=== PATIENT | female | born 1950 | race African-American/Black ===

== ENCOUNTER 2019-01-28 12:27 | Inpatient (IN) ==
--- NOTE | 2019-01-28 13:03 | EKG Report ---
Test Performed on : 01/28/2019 1:00:07 PM Test Reason : near syncope Blood Pressure : / mmHG Vent. Rate : 065 BPM Atrial Rate : 065 BPM P-R Int : 160 ms QRS Dur : 088 ms QT Int : 400 ms P-R-T Axes : 041 -24 -16 degrees QTc Int : 416 ms Normal sinus rhythm. Moderate voltage criteria for LVH, may be normal variant Borderline ECG When compared with ECG of 03-APR-2016 06:47, No significant change was found Unconfirmed Result
--- NOTE | 2019-01-28 14:05 | Diag Imaging Result Doc PS360 ---
EXAM : CT HEAD/C-SPINE W/O CONTRAST HISTORY: syncope, fall/trauma TECHNIQUE: 1. CT head without contrast 2. CT cervical spine without contrast COMPARISON: 04/05/2018 FINDINGS: Head: No parenchymal hemorrhage. No epidural or subdural hematoma. No subarachnoid hemorrhage. There are chronic microvascular ischemic changes. No mass identified on this noncontrasted exam. No hydrocephalus. No skull fracture. Cervical spine: There is mild reversal of normal curvature with mild scoliosis. Moderate to prominent degenerative changes in the lower cervical spine. No fracture. IMPRESSION: Head: No hemorrhage. No injury. Cervical spine: No acute fracture. This exam was performed using automated exposure control, adjustment of mA or kV according to patient size, and/or use of iterative reconstruction technique. Electronically signed by Carlos Marquez 01/28/2019 2:03 PM
--- NOTE | 2019-01-28 14:10 | Diag Imaging Result Doc PS360 ---
EXAM: KNEE 3 VIEWS LEFT HISTORY: fall, injury TECHNIQUE: Left knee, three views COMPARISON: 04/05/2018 FINDINGS: No fracture. No dislocation. Prominent joint space narrowing medially. There are bone spur femoral condyles and tibial plateau. Prominent patellar bone spurs with patellofemoral joint space narrowing. IMPRESSION: Severe arthritis. No acute fracture. Electronically signed by Carlos Marquez 01/28/2019 2:08 PM
--- NOTE | 2019-01-28 14:11 | Diag Imaging Result Doc PS360 ---
EXAM: CHEST-1 VIEW HISTORY: chest pain, fall TECHNIQUE: Chest single view COMPARISON: 04/15/2013 FINDINGS: The lungs are well expanded. No contusion. No pneumothorax. The heart is mildly enlarged. The vessels are not distended. There are no infiltrates. No effusion identified. Right granuloma. IMPRESSION: No injury Electronically signed by Carlos Marquez 01/28/2019 2:09 PM
[2019-01-28 14:40] LABS: BASO# 0.02 X1000 (0.0-0.2); BASO% 0.3 % (0.0-0.8); HEMATOCRIT 33.3 % (37.0-47.0); HEMOGLOBIN 10.8 g/dL (12.0-16.0); IMM GRAN# 0.01 X1000 (0.0-0.04); IMM GRAN% 0.2 % (0.0-0.5); LYMPH# 1.37 X1000 (1.2-3.4); LYMPH% 23.1 % (20.5-51.1); MCH 27.5 PG (27-31); MCHC 32.4 g/dL (33-37); MCV 84.7 FL (81-99); MONO# 0.49 X1000 (0.11-0.59); MONO% 8.3 % (1.7-9.3); MPV 11.4 FL (7.4-10.4); NEUT# 4.04 X1000 (1.4-6.5); NEUT% 68.1 % (42.2-75.2); PLT 195 X1000 (130-400); RBC 3.93 XMIL (4.2-5.4); RDW 14.9 % (11.5-14.5); WBC 5.93 X1000 (4.8-10.8)
[2019-01-28 14:41] LABS: AGAP 10; ALBUMIN 3.5 g/dL (3.5-5.0); ALKALINE PHOSPHATASE 66 U/L (32-104); BUN 14 mg/dL (8-22); CALCIUM 8.7 mg/dL (8.8-10.2); CHLORIDE 107 mmol/L (98-107); COSMO 279; CREATININE 0.6 mg/dL (0.5-0.9); ESTIMATED GFR > 60; GLUCOSE 86 mg/dL (70-104); GOT 54 U/L (10-30); GPT 11 U/L (10-36); POTASSIUM 4.2 mmol/L (3.5-5.1); SODIUM 140 mmol/L (136-145); TCO2 24 mmol/L (25-35); TOTAL PROTEIN 6.6 g/dL (6.3-8.3)
[2019-01-28 15:11] LABS: URINE SOURCE CLEAN CATCH
[2019-01-28 15:32] LABS: BILIRUBIN URINE NEGATIVE (NEGATIVE); BLOOD URINE NEGATIVE (NEGATIVE); CLARITY CLEAR (CLEAR); COLOR YELLOW; GLUCOSE URINE NEGATIVE (NEGATIVE); KETONE URINE TRACE mg/dL (NEGATIVE); LEUKOCYTES URINE NEGATIVE (NEGATIVE); NITRITE URINE NEGATIVE (NEGATIVE); PROTEIN URINE TRACE mg/dL (NEGATIVE); UROBILINOGEN URINE 4 mg/dL
[2019-01-28 15:46] LABS: URINE BACTERIA 3+ /HFP; URINE EPITHELIAL CELLS >10 /HPF (<10); URINE RBC <10 /HPF (<10); URINE WBC <10 /HPF (<10); URINE YEAST NONE SEEN /HPF
[2019-01-28 15:47] LABS: URINE CAST NONE SEEN /LPF; URINE CRYSTAL NONE SEEN /HPF
--- NOTE | 2019-01-28 18:03 | PROVIDER DOCUMENTATION ---
This chart was entered by Katy Recinos Scribe, acting as scribe for Rene Guerra MD. HPI-General Adult - General Chief Complaint: Near Syncope Stated Complaint: PASSED OUT / NAUSEA / FALL Time Seen by Provider: 01/28/19 13:00 Source: patient, family (daughter) Allergies/Adverse Reactions: Patient Allergies Allergy/AdvReac Type Severity Reaction Status Date / Time Penicillins Allergy HIVES Verified 04/05/18 20:32 adhesive tape AdvReac ITCHING Verified 04/05/18 20:32 Home Medications: Home Medication List Medication Instructions Recorded Confirmed Last Taken Type Amlodipine Besylate [Norvasc] 10 mg PO DAILY 03/29/16 01/28/19 01/28/19 History Levothyroxine Sodium [Synthroid] 200 mcg PO DAILY 03/29/16 01/28/19 01/28/19 History Aspirin 81 mg PO DAILY 04/05/18 01/28/19 01/28/19 History Hydrocodone/Acetaminophen [[place] 1 ea PO Q4-6H PRN PRN #12 tab 04/05/18 Unknown Rx 5-325 Tablet] Lisinopril/Hydrochlorothiazide 1 ea PO DAILY #30 tab 04/05/18 01/28/19 01/28/19 Rx [Lisinopril-Hctz 20-12.5 mg Tab] - History of Present Illness -Gen Adult Nature of Presenting Problems: 68 yobf presents to the ed with c/o syncope and fall. pt has left knee pain and rt shoulder pain. pt sts was going [employer] "when God spoke to me and touched me then I fell" pt sts has hx of syncope. prior to syncope pt had nausea and dizziness and post fall in she closes her eyes dizziness returns. pt on exam is nontoxic in appearance Location of Pain/Injury: reports: upper extremity (rt shoulder), lower extremity (l knee) Quality of Pain: reports: aching Severity: reports: moderate Onset/Duration: reports: just prior to arrival Timing: reports: still present, improving Context/Activities at Onset: reports: light activity Modifying Factors: improves with: rest. worse with: movement Associated Symptoms: reports: dizziness, joint pain (knee and shoulder), nausea, syncope. denies: back/neck pain, chest pain, cough, fatigue, fever/chills, shortness of breath, vomiting Similar Symptoms Previously?: Yes (hx of syncope) Recently seen or treated by another doctor?: No Review of Systems - Adult - REVIEW OF SYSTEMS - ADULT Constitutional: denies: chills, fever Eyes: reports: no symptoms reported Ears, Nose, Mouth & Throat: reports: no symptoms reported Cardiovascular: denies: chest pain, palpitations Respiratory: denies: shortness of breath, wheezing Gastrointestinal: reports: nausea. denies: diarrhea, vomiting Genitourinary: reports: no symptoms reported Musculoskeletal: reports: see HPI, joint pain, muscle aches. denies: back pain, neck pain Integumentary: reports: no symptoms reported Neurological: reports: see HPI, dizziness/vertigo, syncope. denies: ataxia, headache/migraines, seizure, slurred speech, tremors Psychiatric: reports: no symptoms reported Endocrine: reports: no symptoms reported Hematologic/Lymphatic: reports: no symptoms reported Allergic/Immunologic: reports: no symptoms reported All Other Systems: Reviewed and Negative Past History - Adult - PAST MEDICAL HISTORY-ADULT Review of Records: reports: Nursing Assessment Review, Medications Reviewed Major Childhood Illnesses: reports: denies history Cardiovascular: reports: HTN Respiratory: reports: asthma Gastrointestinal: reports: denies history Obstetrical/Gynecological: reports: denies history Genitourinary: reports: denies history Musculoskeletal: reports: denies history Hand Dominance: Right Handed Neurological: reports: Multiple Sclerosis, TIA Psychiatric: reports: denies history Endocrine/Immune: reports: thyroid disorder Other Conditions: reports: denies history - PRIOR SURGERIES/PROCEDURES Surgical/Procedure History: reports: hysterectomy, joint replacement, other (sx on jugular due to growth) - IMMUNIZATION STATUS Childhood Immunizations: See Nurse Assessment Flu Vaccine: See Nurse Assessment - FAMILY HISTORY Family History: reviewed, not pertinent - SOCIAL HISTORY Smoking: quit greater than 1 year Substance Use: denies Alcohol Use Frequency: never Living Situation: family Physical Exam-General - PHYSICAL EXAM-ADULT Initial Vital Signs Reviewed: Yes - CONSTITUTIONAL General Appearance: appears well, alert, obese - EYES Eyes: PERRL/EOMI, pink conjunctivae - HEAD, EARS, NOSE, MOUTH & THROAT HENMT: normocephalic/atraumatic, moist mucous membranes, normal ENT inspection - NECK Neck: full range of motion, supple, normal inspection - RESPIRATORY Respiratory: chest non-tender, lungs clear, normal breath sounds - CARDIOVASCULAR Cardiovascular: normal peripheral pulses, regular rate, rhythm - GASTROINTESTINAL (ABDOMEN) Abdominal Exam: normal bowel sounds, non tender, soft - GENITOURINARY Female Genitalia/Pelvic Exam: deferred Rectal Exam: deferred Hemoccult Exam: deferred - LYMPHATIC Lymphatic: no adenopathy - MUSCULOSKELETAL Back Exam: normal inspection, no CVA tenderness, no vertebral tenderness Extremity: normal inspection, no pedal edema, no calf tenderness, normal capillary refill, pelvis stable, tenderness (left knee and rt shoulder) - SKIN Integumentary: normal color, normal turgor, warm/dry. negative: ecchymosis - NEUROLOGIC Neurologic: grossly normal, no motor/sensory deficits - PSYCHIATRIC Psych/Mental Status: normal mood/affect, normal thought content, normal thought process, oriented x 3 Progress - PLAN OF CARE/RESULTS Progress/Plan/Lab Results: Vital Signs - 8 hr 01/28/19 12:31 Temperature 98 F Pulse Rate 76 Respiratory Rate 18 Blood Pressure 161/99 O2 Sat by Pulse Oximetry 95 Orders Category Date Time Status Finger Stick Blood Sugar (ED) DIRECTED Care 01/28/19 12:37 Active Nursing- Obtain EKG ONCE Care 01/28/19 12:37 Active EKG [EKG] Stat Ther 01/28/19 12:37 Draft Result Diagrams: 01/28/19 14:09 01/28/19 14:09 - REASSESSMENT Reassessment #1 Time Reassessed: 14:23 Status: improving Reassessment #2 Time Reassessed: 17:32 Status: unchanged - EKG 1 Time of EKG reading by physician:: 13:00 EKG Read and Signed by:: Rene Guerra EKG Interpretation (*Must complete 3 of following elements*): Normal (borderline) Rate: 65 Rhythm: nsr [place]: normal QRS: LVH NH Interval: normal ST Wave: normal Prior EKG Comparison: no prior EKG - XRAY 1 XRAY: Left XRAY Study: Knee Impression: See EMR Report (EXAM: KNEE 3 VIEWS LEFT HISTORY: fall, injury TECHNIQUE: Left knee, three views COMPARISON: 04/05/2018 FINDINGS: No fracture. No dislocation. Prominent joint space narrowing medially. There are bone spur femoral condyles and tibial plateau. Prominent patellar bone spurs with patellofemoral joint space narrowing. IMPRESSION: Severe arthritis. No acute fracture. Electronically signed by Carlos Marquez 01/28/2019 2:08 PM 01/28/19 1408 Interpreting Physician: Carlos Marquez MD Dictated Date/Time: 01/28/19 1407 cc: Rene Guerra MD; Jeanna Ford MD) 2 XRAY: Bilateral XRAY Study: Chest Impression: See EMR Report (EXAM: CHEST-1 VIEW HISTORY: chest pain, fall TECHNIQUE: Chest single view COMPARISON: 04/15/2013 FINDINGS: The lungs are well expanded. No contusion. No pneumothorax. The heart is mildly enlarged. The vessels are not distended. There are no infiltrates. No effusion identified. Right granuloma. IMPRESSION: No injury Electronically signed by Carlos Marquez 01/28/2019 2:09 PM 01/28/19 1409 Interpreting Physician: Carlos Marquez MD Dictated Date/Time: 01/28/19 1408 cc: Rene Guerra MD; Jeanna Ford MD) - CT/MRI 1 CT Study: Cervical Spine, Head Impression: See EMR Report (EXAM : CT HEAD/C-SPINE W/O CONTRAST HISTORY: syncope, fall/trauma TECHNIQUE: 1. CT head without contrast 2. CT cervical spine without contrast COMPARISON: 04/05/2018 FINDINGS: Head: No parenchymal hemorrhage. No epidural or subdural hematoma. No subarachnoid hemorrhage. There are chronic microvascular ischemic changes. No mass identified on this noncontrasted exam. No hydrocephalus. No skull fracture. Cervical spine: There is mild reversal of normal curvature with mild scoliosis. Moderate to prominent degenerative changes in the lower cervical spine. No fracture. IMPRESSION: Head: No hemorrhage. No injury. Cervical spine: No acute fracture. This exam was performed using automated exposure control, adjustment of mA or kV according to patient size, and/or use of iterative reconstruction technique. El ectronically signed by Carlos Marquez 01/28/2019 2:03 PM 01/28/19 1403 Interpreting Physician: Carlos Marquez MD Dictated Date/Time: 01/28/19 1359 cc: Rene Guerra MD; Jeanna Ford MD) - CONSULTS/PCP/HOSPITALIST Notification #1 *Consult/PCP/Hospitalist*: hospitalist dr vasquez Time Discussed: 17:47 Consult Disposition: Admit Departure - Departure Date of Disposition Decision: 01/28/19 Time of Disposition Decision: 17:51 DIAGNOSIS: Fall Syncope Qualifiers: Syncope type: unspecified Qualified Code(s): R55 - Syncope and collapse Disposition: ADMITTED INPATIENT 09 Certified Medical Emergency: Emergent Condition: Stable Additional Freetext Instructions: ED Follow Up Instructions: You have been treated by a care provider in the Emergency Department. These instructions are being provided to you so you can have an understanding of how to care for yourself upon discharge. Upon discharge from the Emergency Department, you are responsible for making arrangements for follow-up care by a physician of your choice. Take all prescribed medications as directed. Return to the Emergency Department immediately for any new or worsening symptoms. You may call the Physician Referral phone number at [phone] to obtain a list of Physicians who are taking new patients. Referrals and Follow-Ups: Jeanna Ford MD [Primary Care Provider] - - Critical Care Note This patient required my direct & personal management of CC.: No Attestation - Physician/ SAAD Attestation Patient care was provided by Advanced Practice Provider:: No The physician spent face to face time with patient:: Yes Advanced Practice Provider documentation review:: Supervising physician onsite and consulted in the evaluation and care of this patient. The physician did have a face to face encounter with the patient. This chart was documented by the indicated scribe, (Katy Recinos Scribe) and accurately reflects the services I performed and decisions made by me, Rene Guerra MD, as attested by the provider's signature.
--- NOTE | 2019-01-28 19:08 | Diag Imaging Result Doc PS360 ---
EXAM: CT ANGIOGRAM HEAD/NECK 01/28/2019 HISTORY: syncope TECHNIQUE: This exam was performed using automated exposure control, adjustment of mA or kV according to patient size, and/or use of iterative reconstruction technique. COMMENT: 3-D MIPS were performed. The cervical common and internal carotid arteries are widely patent. The vertebral arteries are patent bilaterally. The basilar and intracranial internal carotid arteries are patent bilaterally. The posterior cerebral, anterior cerebral and middle cerebral arteries are patent proximally. There is no evidence of abnormal contrast enhancement. IMPRESSION: No evidence of significant stenosis. Electronically signed by Carrington Meade 01/28/2019 7:06 PM
[2019-01-28] MEDS ORDERED: ZOFRAN IV PRN (20:35)
[2019-01-28] MEDS: PRILOSEC PO SCH (21:02)
[2019-01-28] MEDS: NS 1,000 ML IV SCH (21:02)
[2019-01-28] MEDS: LOVENOX SUBQ SCH (21:02)
[2019-01-29] MEDS ORDERED: NORVASC PO ONE (03:22)
[2019-01-29] MEDS: NS 1,000 ML IV SCH (04:46)
[2019-01-29 06:11] LABS: HEMATOCRIT 34.5 % (37.0-47.0); HEMOGLOBIN 11.1 g/dL (12.0-16.0); MCH 27.3 PG (27-31); MCHC 32.2 g/dL (33-37); MPV 11.2 FL (7.4-10.4); RBC 4.06 XMIL (4.2-5.4); RDW 14.9 % (11.5-14.5); WBC 4.83 X1000 (4.8-10.8)
[2019-01-29 06:32] LABS: AGAP 10; BUN 10 mg/dL (8-22); CALCIUM 8.7 mg/dL (8.8-10.2); CHLORIDE 109 mmol/L (98-107); COSMO 282; CREATININE 0.6 mg/dL (0.5-0.9); ESTIMATED GFR > 60; GLUCOSE 94 mg/dL (70-104); SODIUM 142 mmol/L (136-145); TCO2 23 mmol/L (25-35)
[2019-01-29] MEDS: NORVASC PO SCH (08:02)
[2019-01-29] MEDS: ASPIRIN PO SCH (08:02)
[2019-01-29] MEDS: PRILOSEC PO SCH (08:02)
[2019-01-29] MEDS: NORCO-5 PO PRN (08:38)
[2019-01-29] MEDS ORDERED: SYNTHROID PO SCH (09:00)
--- NOTE | 2019-01-29 09:52 | HISTORY AND PHYSICAL ---
PRIMARY CARE PHYSICIAN: Dr. Jeanna Ford. CHIEF COMPLAINT: Syncope and fall while at [employer] and complained of left knee and right shoulder pain. HISTORY OF PRESENTING ILLNESS: This is a 68-year-old, female who presents to the [facility] ER after she states that she was at [employer] and was praying, and all of a sudden, fell and passed out. Had some nausea and dizziness prior to the fall and had some left knee pain and right shoulder pain status post the fall. She says she has had a history of this in the past with no known cause and her workup was fairly unremarkable. Her urinalysis only had 3+ bacteria. They did a head and neck CT that showed no significant stenosis. A left knee x-ray that showed severe arthritis. No acute fracture. A head CT with no hemorrhage, no injury. Cervical spine, no acute fracture. Chest x-ray, no injury. An EKG with normal sinus rhythm at 65. She was admitted for further evaluation and treatment. PAST MEDICAL HISTORY: Hypertension, asthma, multiple sclerosis, a TIA, and hypothyroidism. PAST SURGICAL HISTORY: Hysterectomy, knee replacement, and a growth on her jugular vein that was removed. A cholecystectomy, section, hysterectomy, a thyroidectomy, and gastric bypass. FAMILY HISTORY: Reviewed and noncontributory. SOCIAL HISTORY: She is a former smoker. Denied any alcohol or illicit drug use. ALLERGIES: Penicillin and adhesive tape. HOME MEDICATIONS: She takes lisinopril/hydrochlorothiazide 20/12.5 one p.o. daily-will be held, Norvasc 10 mg p.o. daily, aspirin 81 mg p.o. daily, and Synthroid 200 mcg p.o. daily. LABORATORY DATA: Showed a white blood cell count of 5.93, hemoglobin 10.8, hematocrit 33.3, platelets 195,000. Sodium 140, potassium 4.2, chloride 107, CO2 24, BUN of 14, creatinine 0.6, glucose of 86. Troponin less than 0.010. ProBNP of 107. TSH of 3.27. Urinalysis was negative except for 3+ bacteria. EKG showed normal sinus rhythm at 65. Chest x-ray showed no injury. Head and cervical spine showed no hemorrhage, no injury, and no acute fracture. Left knee x-ray showed severe arthritis. No acute fracture. CT of the head and neck showed no evidence of significant stenosis. REVIEW OF SYSTEMS: She denied any fever, chills, blurred vision. She did have some dizziness and lightheadedness. Denied any chest pain, coughing, shortness of breath. She was positive for some nausea but no vomiting. No constipation, diarrhea, or burning or hurting with urination. PHYSICAL EXAMINATION: VITAL SIGNS: On arrival, she had a temperature of 98 degrees, pulse 76, respirations 18, blood pressure 161/99, saturating 95% on room air. GENERAL: This is a 68-year-old, female who is sitting on the side of the bed and answering questions appropriately. HEENT: Normocephalic, atraumatic. Normal ENT inspection. Oropharynx and nares are clear. Eyes: Pupils are equal, round, and reactive to light and accommodation. Extraocular movements are intact. NECK: Normal inspection. Normal range of motion. LUNGS: Clear to auscultation bilaterally with equal lung expansion and chest wall movement. HEART: With regular rate and rhythm. No murmurs, rubs, or gallops. ABDOMEN: Soft, nontender, nondistended. Bowel sounds are present x4 quadrants. MUSCULOSKELETAL: She has 5/5 strength x4 extremities. NEUROLOGICAL: The cranial nerves 2-12 appear grossly intact. ASSESSMENT: 1. Fall. 2. Syncope. 3. Hypertension. 4. Hypothyroidism. PLAN: She was admitted to the medical unit at [facility]. Placed on telemetry, healthy heart diet. Echocardiogram. We will consult physical therapy. We are going to do an MRI of the brain with and without contrast. Place her on Lovenox 40 mg subcutaneous q.24 for DVT prophylaxis. Normal saline at 125 mL an hour, we can stop that. Continue Zofran 4 mg IV q.4 hours p.r.n. We will check a CBC and BMP. Further orders after seen by attending. Dictated by RASHEL Vera for Melvin Timmons MD Addendum: Patient seen and examined by myself. Agree with RASHEL note. It reflects my assessment and plan. Patient is being admitted to hospital for syncope. Work up in progress. Patient also reported weight loss during the last 6 months along with low appetite. Will order CT abdomen and pelvis as well. Will monitor patient closely. cc: RASHEL Vera MD Kathleen Dupper, MD [facility]
--- NOTE | 2019-01-29 14:22 | Diag Imaging Result Doc PS360 ---
MRI BRAIN W/WO CONTRAST - 01/29/2019 INDICATION: Stroke,Syncope COMPARISON: None FINDINGS: There is no area of restricted diffusion. The ventricles and sulci are normal in size and contour. No intracranial mass or hemorrhage. There is extensive, diffuse cerebral white matter hyperintensity on the T2 and FLAIR images. This is in a globular fashion. The brainstem and cerebellum appear normal. No abnormal contrast enhancement. There is atrophy of the pituitary. Otherwise midline structures are normal. IMPRESSION: Extensive chronic cerebral white matter hyperintensities. These are nonspecific but most likely chronic microvascular disease. Electronically signed by Van Casas 01/29/2019 2:19 PM
--- NOTE | 2019-01-29 19:32 | Diag Imaging Result Doc PS360 ---
CT ABDOMEN/PELVIS W/WO CONTRAS - 01/29/2019 INDICATION: weight loss last 6 months COMPARISON: None FINDINGS: On the noncontrast exam, there are no abnormal calcifications. On the contrast enhanced exam, the lung bases are clear and the heart size is normal. There is a relatively large hiatal hernia. There are surgical changes that appear most consistent with gastric bypass. No obstruction, although the entire gastric remnant is up in the chest as well as a good portion of the draining molina limb. There are cholecystectomy clips. There are small renal cysts. There is mild constipation with rectal stool impaction. Uterus is absent. Urinary bladder is normal. There are moderate degenerative changes of the spine. No acute or suspicious bony lesion. IMPRESSION: Hiatal hernia. Constipation with rectal stool impaction. This exam was performed using automated exposure control, adjustment of mA or kV according to patient size, and/or use of iterative reconstruction technique Electronically signed by Van Casas 01/29/2019 7:29 PM
[2019-01-29] MEDS: LOVENOX SUBQ SCH (20:05)
--- NOTE | 2019-01-29 23:38 | ECHO REPORT ---
ORDER DATE: 01/28/2019 MEASUREMENTS: Septal thickness 0.8, left ventricular internal diameter in diastole 4.3, posterior wall thickness 1.0, aortic root 3.1, left atrium 3.4. SUMMARY: 1. Fair quality study. 2. Very mild sclerosis of trileaflet aortic valve demonstrated with adequate aortic valve opening evident. Peak gradient across aortic valve is less than 10 mmHg. Mitral, tricuspid, and pulmonic valves are without evidence of structural abnormality with trace mitral regurgitation, trace tricuspid regurgitation, and trace pulmonic insufficiency. The aortic root is normal size. 3. Normal left ventricular dimensions demonstrated. Estimated left ejection fraction appears to be at least 60%. No regional wall motion abnormalities are evident. Left atrium, right atrium, right ventricle are normal in size with normal right ventricular systolic function. 4. No pericardial effusion. 5. Appearance of inferior vena cava suggests normal central venous pressure. CONCLUSIONS: 1. Very mild aortic valve sclerosis without stenosis. 2. Normal left ventricular systolic function without regional wall motion abnormality evident. cc: MD Melvin Gtz MD
[2019-01-30] MEDS: NORCO-5 PO PRN (01:34)
[2019-01-30] MEDS ORDERED: SYNTHROID PO SCH (07:00)
[2019-01-30] MEDS ORDERED: PRILOSEC PO SCH (07:00)
[2019-01-30 07:14] LABS: HEMATOCRIT 36.3 % (37.0-47.0); HEMOGLOBIN 11.7 g/dL (12.0-16.0); MCHC 32.2 g/dL (33-37); MCV 83.8 FL (81-99); RBC 4.33 XMIL (4.2-5.4); RDW 14.9 % (11.5-14.5); WBC 4.71 X1000 (4.8-10.8)
[2019-01-30 07:24] LABS: AGAP 12; BUN 7 mg/dL (8-22); CHLORIDE 103 mmol/L (98-107); COSMO 272; CREATININE 0.6 mg/dL (0.5-0.9); ESTIMATED GFR > 60; GLUCOSE 98 mg/dL (70-104); SODIUM 137 mmol/L (136-145); TCO2 22 mmol/L (25-35)
[2019-01-30 07:37] VITALS: BP 150/100
[2019-01-30] MEDS: NORVASC PO SCH (08:51)
[2019-01-30] MEDS: ASPIRIN PO SCH (08:51)
--- NOTE | 2019-01-30 09:40 | Diag Imaging Result Doc PS360 ---
US ABDOMEN-COMPLETE - 01/30/2019 INDICATION: weight loss COMPARISON: None FINDINGS: The gallbladder is surgically absent. The liver, spleen, pancreas, and both kidneys are normal. The spleen measures 9.4 x 8.6 x 3.9 cm. Common bile duct measures 6 mm. Aorta, IVC, and main portal vein are patent. IMPRESSION: Negative exam. Electronically signed by Van Casas 01/30/2019 9:38 AM
--- NOTE | 2019-02-01 13:20 | DISCHARGE SUMMARY ---
ADMISSION DATE: 01/30/2019 DISCHARGE DATE: 01/30/2019 PRIMARY CARE PHYSICIAN: Jeanna Ford MD ADMISSION DIAGNOSES: 1. Fall. 2. Syncope. 3. Hypertension. 4. Hypothyroidism. DISCHARGE DIAGNOSES: 1. Fall. 2. Syncope, resolved. 3. Hypertension. 4. Hypothyroidism. SUMMARY OF FINDINGS: This is a 68-year-old female, who states that she was at [employer] and had been praying and all of a sudden fell and passed out. Had some nausea and dizziness prior to her fall and some left knee and right shoulder pain. Has a history of syncopal episodes. Her workup was fairly unremarkable. Head and neck CT showed no significant stenosis. Knee x-ray of the left knee showed severe arthritis, but no fracture. Head CT showed no hemorrhage or injury. Cervical spine showed no acute fracture. Chest x-ray showed no injury. We did do an abdomen and pelvis CT that showed hiatal hernia and constipation with a rectal stool impaction. Abdomen ultrasound was negative. We did consult Physical Therapy and she ambulated without any issues and so it was felt that she could safely be discharged home. DISCHARGE MEDICATIONS: Include Norvasc 10 mg p.o. daily, aspirin 81 mg p.o. daily, Synthroid 200 mcg p.o. daily, lisinopril/hydrochlorothiazide 20/12.5 p.o. daily, and pantoprazole 40 mg p.o. daily. FOLLOW-UP: She will need to follow up with her primary care physician in 1 to 2 weeks and call the office for an appointment. COORDINATION TIME: A 33-minute discharge. Dictated by RASHEL Vera for Melvin Timmons MD Addendum: Patient seen and examined by myself. Agree with RASHEL note. It reflects my assessment and plan. Patient is being discharged in stable condition. Will be seen by PCP in a week. cc: RASHEL Vera MD Kathleen Dupper [facility]
== END 2019-01-30 13:22 | disposition home or self-care (01) | DRG 312 ==
LOC: P.MEDSURG 12:27 → P.ED 12:27
PROVIDERS: ATTEND Internal Medicine
CPT/HCPCS: 70450; 70496; 70498; 70553; 71010; 71045; 72125; 73562; 74178; 76700; 80048; 80053; 81001; 82948; 83880; 84443; 84484; 85025; 85027; 93005; 93306; 97116; 97162; 99285; A9270; A9579; J1650; J7030; Q9967; XXXXX

== ENCOUNTER 2019-05-04 07:40 | Day surgery (SDC) ==
--- NOTE | 2019-04-29 17:15 | EKG Report ---
Test Performed on : 04/29/2019 4:54:29 PM Test Reason : PAT Blood Pressure : / mmHG Vent. Rate : 076 BPM Atrial Rate : 076 BPM P-R Int : 160 ms QRS Dur : 086 ms QT Int : 368 ms P-R-T Axes : 003 -16 040 degrees QTc Int : 414 ms Normal sinus rhythm. Moderate voltage criteria for LVH, may be normal variant Borderline ECG When compared with ECG of 28-JAN-2019 13:00, No significant change was found Confirmed by Last LIANG, Mao Chambers ([id number]) on 04/29/2019 5:31:09 PM
[2019-04-29 17:17] LABS: URINE SOURCE CLEAN CATCH
[2019-04-29 17:19] LABS: BASO# 0.02 X1000 (0.0-0.2); BASO% 0.3 % (0.0-0.8); HEMATOCRIT 35.8 % (37.0-47.0); HEMOGLOBIN 11.7 g/dL (12.0-16.0); LYMPH# 1.92 X1000 (1.2-3.4); LYMPH% 29.6 % (20.5-51.1); MCH 27.3 PG (27-31); MCHC 32.7 g/dL (33-37); MCV 83.6 FL (81-99); MONO# 0.53 X1000 (0.11-0.59); MONO% 8.2 % (1.7-9.3); MPV 10.8 FL (7.4-10.4); NEUT# 4.02 X1000 (1.4-6.5); NEUT% 61.9 % (42.2-75.2); PLT 216 X1000 (130-400); RBC 4.28 XMIL (4.2-5.4); RDW 14.8 % (11.5-14.5); WBC 6.49 X1000 (4.8-10.8)
[2019-04-29 17:20] LABS: BILIRUBIN URINE NEGATIVE (NEGATIVE); BLOOD URINE NEGATIVE (NEGATIVE); COLOR YELLOW; GLUCOSE URINE NEGATIVE (NEGATIVE); KETONE URINE NEGATIVE (NEGATIVE); LEUKOCYTES URINE NEGATIVE (NEGATIVE); NITRITE URINE NEGATIVE (NEGATIVE); PH URINE 6.5; PROTEIN URINE NEGATIVE (NEGATIVE); SP GRAVITY URINE 1.017; TURBIDITY URINE CLEAR (CLEAR); UR EPITHELIAL CELLS <10 /HPF (<10); URINE BACTERIA NEGATIVE /HPF; URINE RBC <10 /HPF (<10); URINE WBC <10 /HPF (<10); UROBILINOGEN URINE 3 mg/dL (NORMAL)
[2019-04-29 17:28] LABS: INR 1.07
[2019-04-29 17:29] LABS: PTT 31.6 Seconds (22.3-41.8)
[2019-04-29 18:24] LABS: AGAP 14; ALBUMIN 4.1 g/dL (3.5-5.0); BUN 20 mg/dL (8-22); CALCIUM 9.3 mg/dL (8.8-10.2); CHLORIDE 104 mmol/L (98-107); COSMO 282; CREATININE 0.7 mg/dL (0.5-0.9); ESTIMATED GFR > 60; GLUCOSE 100 mg/dL (70-104); POTASSIUM 4.2 mmol/L (3.5-5.1); SODIUM 140 mmol/L (136-145); TCO2 22 mmol/L (25-35)
[2019-05-04] MEDS ORDERED: COLACE ONE (08:47)
[2019-05-04] MEDS ORDERED: REGLAN ONE (08:47)
[2019-05-04] MEDS ORDERED: PEPCID ONE (08:47)
[2019-05-04] MEDS ORDERED: CELEBREX ONE (08:48)
[2019-05-04] MEDS ORDERED: LR 1,000 ML ONE (08:48)
[2019-05-04] MEDS ORDERED: KEFZOL 1 GM/D5W 2 GM/100 ML IVPB ONE (08:48)
[2019-05-04] MEDS: LYRICA ONE ×4 (08:50→09:50)
[2019-05-04] MEDS ORDERED: LYRICA ONE (09:51)
[2019-05-04] MEDS ORDERED: SENSORCAINE 0.25%/EPI 1:200,000 ONE (09:55)
[2019-05-04] MEDS ORDERED: VANCOMYCIN ONE (09:55)
[2019-05-04] MEDS ORDERED: TORADOL ONE (09:55)
[2019-05-04] MEDS ORDERED: DURAMORPH ONE (09:55)
[2019-05-04] MEDS ORDERED: SODIUM CHLORIDE 0.9% ONE (09:56)
[2019-05-04] MEDS ORDERED: EXPAREL 1.3% ONE (09:56)
[2019-05-04] MEDS ORDERED: NEOSPORIN G.U. IRRIGANT ONE (09:56)
[2019-05-04] MEDS ORDERED: DIPRIVAN 1% ONE (10:14)
[2019-05-04] MEDS ORDERED: XYLOCAINE-MPF 2% ONE (10:14)
[2019-05-04] MEDS ORDERED: VERSED ONE (10:41)
[2019-05-04] MEDS ORDERED: FENTANYL ONE (10:44)
[2019-05-04] MEDS: CYKLOKAPRON 1,000 MG/NS 2,000 MG/200 ML IVPB ONE ×2 (11:08→12:25)
[2019-05-04] MEDS ORDERED: OFIRMEV 1000 MG/ISOTONIC SOLN 1,000 MG/100 ML BOTTLE ONE (11:14)
[2019-05-04] MEDS ORDERED: DECADRON ONE ×2 (11:14→11:28)
[2019-05-04] MEDS ORDERED: EPHEDRINE ONE (11:30)
[2019-05-04 11:40] LABS: URINE SOURCE CATH
[2019-05-04 11:53] LABS: BILIRUBIN URINE NEGATIVE (NEGATIVE); BLOOD URINE NEGATIVE (NEGATIVE); COLOR STRAW; GLUCOSE URINE NEGATIVE (NEGATIVE); KETONE URINE NEGATIVE (NEGATIVE); PROTEIN URINE NEGATIVE (NEGATIVE); SP GRAVITY URINE 1.006; TURBIDITY URINE CLEAR (CLEAR)
[2019-05-04 11:54] LABS: LEUKOCYTES URINE NEGATIVE (NEGATIVE); NITRITE URINE NEGATIVE (NEGATIVE); UR EPITHELIAL CELLS <10 /HPF (<10); URINE BACTERIA NEGATIVE /HPF; URINE RBC <10 /HPF (<10); URINE WBC <10 /HPF (<10); UROBILINOGEN URINE NORMAL (NORMAL)
[2019-05-04] MEDS ORDERED: OXY IR ONE (13:45)
[2019-05-04] MEDS ORDERED: NS 1,000 ML ONE (13:46)
[2019-05-04] MEDS ORDERED: MORPHINE IV PRN ×3 (14:15)
[2019-05-04] MEDS ORDERED: OXY IR PO PRN ×2 (14:15)
[2019-05-04] MEDS ORDERED: MILK OF MAGNESIA PO PRN (14:15)
[2019-05-04] MEDS ORDERED: ZOFRAN IV PRN (14:15)
[2019-05-04] MEDS ORDERED: ZOFRAN ODT PO PRN (14:15)
[2019-05-04] MEDS: NS 1,000 ML IV SCH (16:59)
[2019-05-04] MEDS: NORVASC PO SCH (16:59)
--- NOTE | 2019-05-04 18:52 | OPERATIVE NOTE ---
PROCEDURE DATE: 05/04/2019 PREOPERATIVE DIAGNOSIS: Left knee degenerative joint disease. POSTOPERATIVE DIAGNOSIS: Left knee degenerative joint disease. PROCEDURE: Left total knee arthroplasty using a [facility] size 6 femoral component, size 7 tibial base plate, a 13 mm articular insert, and a 35 mm patellar component. ANESTHESIA: Spinal. SURGEON: Emmanuel Lopez MD. SAXOPHONE TEACHER: RASHEL Thomas, who was present throughout the entirety of the case and whose assistance was critical for successful completion of the case. BLOOD LOSS: Minimal. TOURNIQUET TIME: Approximately an hour. DESCRIPTION OF PROCEDURE: Patient was brought to the operative suite and placed in supine position. After successful administration of general anesthesia, a well-padded tourniquet was placed on the left proximal thigh and left lower extremity was prepped and draped in the usual sterile fashion. Leg was exsanguinated. Tourniquet was insufflated to 350 torr. A longitudinal incision was made beginning at the superior pole of the patella and extended distally to tibial tuberosity. Full-thickness skin flaps were then elevated and then a medial arthrotomy was made, and the medial capsule was elevated off the medial tibial plateau. The ACL, PCL, medial meniscus, and lateral meniscus were excised. A drill was entered in the center distal femur. Intramedullary guide was placed. Distal cutting block was pinned in place and distal cut was made with an oscillating saw. Marginal osteophytes were removed with rongeur. Attention was directed to the tibia. A drill was entered in the center of the tibia. Intramedullary guide was placed. Alignment was checked with drop aleah referencing off the anterior cortex of the tibia and the 2nd ray of the foot, and taking 4 mm off the low side of the tibia which, in this case, was medially. The tibial cutting block was pinned in place and the articular surface of the tibial plateau was removed with an oscillating saw. Marginal osteophytes were removed with a rongeur. The knee was taken out in extension. Once we were sure we had resected all of the meniscus, extension gap was checked and balanced at 13 mm. Therefore, we set the flexion gap to 22 mm to account for 9 mm of the posterior condyle. Once the rotation was set and the femur was sized to a size 6, a femoral size 6 cutting block was pinned into place using the proper amount of rotation, and then the anterior cuts, chamfer cuts, and posterior condylar cuts were made with the oscillating saw. Marginal osteophytes were removed with a rongeur. A box cutting block was pinned into place. A box cut was made with a box osteotome and oscillating saw. Posterior condyle osteophytes were removed with the curved osteotome and rongeur. The anterior chamfer bone was used to fashion a plug for the femur, and this was driven into place with a slap hammer. Once this was accomplished, attention was directed to the tibia. It was sized to a size 7. A size 7 guide was used for the fin punch. The tibial trial, femoral trial, and 13 mm screws were placed, taken through range of motion, and found to have excellent alignment, balance, and range of motion. Attention was directed to the patella. 9 mm of the articular surface of the patella were removed with the oscillating saw. The patella sized to size 35. A size 35 guide was used to drill peg holes. Lateral facet was chamfered for 30 to 45 degrees. Patellar trial was placed, taken through range of motion, and found to have excellent patellar tracking. All trials were then removed. The knee was copiously irrigated and dried, being certain all bone debris was removed. The tibial component, femoral component, and patellar component were cemented in place, excess cement being removed with a [place]. Once the cement had hardened, excess cement was again removed with an osteotome. The knee was again copiously irrigated and dried, being certain all bone and cement debris were removed. The trial articular insert was removed. The knee was copiously infiltrated with Exparel, including the posterior capsule, anterior capsule, medial and lateral collateral ligaments, anterior musculature, and subcutaneous tissue. A drain was placed exiting superolaterally and buried in the lateral gutter. The definitive 13 mm articular insert was locked into place. The tourniquet was deflated and hemostasis was obtained with electrocautery. The knee was again copiously irrigated with normal saline containing irrigant and Vashe irrigation. The medial arthrotomy was then closed with #1 Vicryl. Skin edges were approximated with 2-0 Vicryl. Skin was closed with Prineo and a sterile dressing was applied. The patient tolerated the procedure well without complication. At the end of the procedure, all counts were correct x2. The patient was transferred to the recovery room in stable condition. cc: Emmanuel Lopez MD
[2019-05-04] MEDS: ULTRAM PO SCH ×2 (19:17→20:26)
[2019-05-04] MEDS: KEFZOL 2 GM/D5W 2 GM/50 ML IVPB IV SCH (19:17)
[2019-05-04] MEDS: CELEBREX PO SCH (20:26)
[2019-05-04] MEDS: LYRICA PO SCH (20:27)
[2019-05-04] MEDS: TYLENOL PO SCH (20:27)
[2019-05-04] MEDS: COLACE PO SCH (20:27)
[2019-05-05] MEDS: KEFZOL 2 GM/D5W 2 GM/50 ML IVPB IV SCH (03:28)
[2019-05-05] MEDS: TYLENOL PO SCH ×2 (03:28→10:59)
[2019-05-05] MEDS: ULTRAM PO SCH ×2 (03:29→10:59)
[2019-05-05] MEDS: NS 1,000 ML IV SCH (03:29)
[2019-05-05 06:19] LABS: HEMATOCRIT 31.6 % (37.0-47.0); HEMOGLOBIN 10.2 g/dL (12.0-16.0)
[2019-05-05] MEDS: SYNTHROID PO SCH ×2 (06:37→13:20)
[2019-05-05 06:47] LABS: AGAP 13; BUN 11 mg/dL (8-22); CALCIUM 9.1 mg/dL (8.8-10.2); CHLORIDE 106 mmol/L (98-107); COSMO 279; CREATININE 0.7 mg/dL (0.5-0.9); ESTIMATED GFR > 60; GLUCOSE 128 mg/dL (70-104); POTASSIUM 4.1 mmol/L (3.5-5.1); SODIUM 139 mmol/L (136-145); TCO2 20 mmol/L (25-35)
[2019-05-05] MEDS ORDERED: ASPIRIN PO SCH (09:00)
[2019-05-05] MEDS ORDERED: PEPCID PO SCH (09:00)
[2019-05-05] MEDS ORDERED: PERIDEX MT SCH (09:00)
[2019-05-05] MEDS ORDERED: DECADRON IV ONE (09:00)
[2019-05-05] MEDS ORDERED: CULTURELLE PO SCH (09:00)
[2019-05-05] MEDS ORDERED: VITAMIN D PO SCH (09:00)
[2019-05-05] MEDS: CELEBREX PO SCH (10:58)
[2019-05-05] MEDS: NORVASC PO SCH (10:58)
[2019-05-05] MEDS: COLACE PO SCH (10:59)
[2019-05-05] MEDS: LYRICA PO SCH (10:59)
[2019-05-05 14:01] VITALS: BP 138/87
--- NOTE | 2019-05-06 03:09 | DISCHARGE SUMMARY ---
ADMISSION DATE: 05/04/2019 DISCHARGE DATE: 05/05/2019 DISCHARGE DIAGNOSIS: Left knee degenerative joint disease status post left total knee arthroplasty. DISCHARGE MEDICATIONS: See discharge med list. DISPOSITION: The patient discharged home with home health physical therapy. Instructed to return for any signs of infection, deep venous thrombosis. Instructed to return to see Dr. Lopez next . HOSPITAL COURSE: On the day of admission, patient underwent a left total knee arthroplasty. Her postoperative course was unremarkable. At discharge, she is afebrile, tolerating a regular diet, ambulating well with physical therapy. Her wound is clean, dry, intact without sign of infection. Her calf is soft without sign of DVT. Her hematocrit is stable at 31.6. She is discharged home in stable condition instructed to follow up as described above. cc: Emmanuel Lopez MD
== END 2019-05-05 15:35 | disposition home or self-care (01) ==
LOC: OR 07:40 → 4N 07:40 → OPS 07:40
PROVIDERS: ATTEND Orthopaedic Surgery